=== PATIENT | female | born 1980 | race Caucasian/White ===

== ENCOUNTER 2018-11-23 14:27 | Emergency (ER) | payer OTHER ==
[2018-11-23 15:03] VITALS: BP 144/78
--- NOTE | 2018-11-23 15:15 | UC ---
Upper Extremity HPI - HPI Summary HPI Summary: Patient is a 38 year old female , who present today to the urgent care with left elbow pain since yesterday. She reports that she was in [place] and just flew in 2 hours ago. Yesterday she was on a bus tour and when she got out for a scenic view, she slipped on the gravel and likely landed on the left elbow/ outstretched hand. She noticed swelling at the elbow and has pain with limitation of range of motion. She took ibuprofen with some relief. 3 days ago she had another injury when she fell in the [place], tripped on the stairs and landed on her left chest with a noticeable bruise in the mid chest on the lateral aspect. She denies any a or shortness of breath or increased pain with deep inspiration. She also landed on her left knee and sustained an abrasion, no difficulty with walking - History of Current Complaint Chief Complaint: UCUpperExtremity Stated Complaint: ARM INJURY Time Seen by Provider: 11/23/18 15:05 Hx Obtained From: Patient Hx Last Menstrual Period: 11/01/18 Pain Intensity: 5 - Allergies/Home Medications Allergies/Adverse Reactions: Allergies Allergy/AdvReac Type Severity Reaction Status Date / Time No Known Allergies Allergy Verified 11/23/18 15:03 Home Medications: Home Medications Escitalopram Oxalate [Lexapro 10 mg] 10 mg PO DAILY 11/23/18 [History Confirmed 11/23/18] buPROPion TAB* [Wellbutrin TAB*] 100 mg PO DAILY 11/23/18 [History Confirmed ] PMH/Surg Hx/FS Hx/Imm Hx - Additional Past Medical History Additional PMH: Past Medical History : Anxiety Past Surgical History: Pilonidal cyst Family History : Skin cancer, hypertension Social History : Occasional alcohol, non smoker, no drug use. 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 Negative: Shortness Of Breath Cardiovascular: Positive: Negative Gastrointestinal: Positive: Negative Genitourinary: Positive: Negative Motor: Positive: Negative Neurovascular: Positive: Negative Musculoskeletal: Positive: Arthralgia - Left elbow, Decreased ROM - Left elbow Neurological: Positive: Negative Psychological: Positive: Negative Is Patient Immunocompromised?: No Physical Exam - Summary Physical Exam Summary: Physical Exam: Const: Appears well. No signs of apparent distress present. Alert and oriented x 3. Musculo: Walks with a normal gait. Head/Face: Atraumatic, normocephalic on inspection. Eyes: EOMI and PERRLA in both eyes. Conjunctivae clear. No discharge noted ENT: Hearing normal Chest: 4 cm x 4 cm sized bruise noted on the lateral aspect and mid chest , tender to palpate . Respiratory: Respirations are unlabored. Lungs clear to auscultation bilaterally, no wheezing , rhonchi or rales noted . CVS: Regular rate and Rhythm, S1S2 normal , no murmurs identified. Extremities: Peripheral circulation is grossly normal. Pulses 2+ Abdomen : Soft non tender , nondistended , Bowel sounds present . No guarding , rebound tenderness or rigidity noted. Skin: Abrasion of the left knee anteriorly, no signs of infection Neuro: Cranial nerves II to XII intact, motor and sensory intact. DTR Intact bilaterally. Mood is normal. Affect is normal. Left Elbow: Inspection /Palpation: no bruising. There is tenderness to palpation at the radial head . No tenderness to palpation at medial epicondyle lateral epicondyle or the olecranon process Range of motion is limited to short of full extension , able to flex .range of motion is painful .pronation and supination is painful. 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 Left forearm: No tenderness to palpation Left wrist: No tenderness to palpation. Full range of motion Left shoulder: Full pain-free range of motion Tinel's sign is negative on the right. Triage Information Reviewed: Yes Vital Signs: Initial Vital Signs Temp 98.4 F 11/23/18 14:55 Pulse 100 11/23/18 14:55 Resp 16 11/23/18 14:55 BP 144/78 11/23/18 14:55 Pulse Ox 97 11/23/18 14:55 Vital Signs Reviewed: Yes Diagnostics - Radiology No standard instances Radiology Interpretation Completed By: Radiologist - Left elbow x-ray: SOFT TISSUE SWELLING. NO ACUTE OSSEOUS INJURY. IF SYMPTOMS PERSIST, RECOMMEND REPEAT IMAGING. Upper Extremity Course/Dx - Course Course Of Treatment: During the visit today, we obtained Left elbow x-ray: SOFT TISSUE SWELLING. NO ACUTE OSSEOUS INJURY. IF SYMPTOMS PERSIST, RECOMMEND REPEAT IMAGING. I spoke to Dr. Giron as that there was a small cortical irregularity at the left radial head and that's where she is very painful and he agreed that if that's the site of pain that she might have nondisplaced radial head fracture. We discussed the findings and further plan. She was given a sling for comfort and support and will follow up with orthopedics Patient expressed understanding . - Differential Dx/Diagnosis Provider Diagnosis: Fracture of radial head, left, closed Discharge - Sign-Out/Discharge Documenting (check all that apply): Patient Departure All imaging exams completed and their final reports reviewed: No Studies - Discharge Plan Condition: Stable Disposition: HOME Patient Education Materials: Elbow Fracture (ED) Referrals: Fernie Paredes MD [Primary Care Provider] - Sancho Roberto MD [Medical Doctor] - 2 Days Additional Instructions: Please continue using the sling. Ibuprofen as needed for pain Ice the joint locally 15 minutes at a time, 3-4 times a day Follow up with orthopedics in 2 to 3 days . Patients blood pressure slightly high in Urgent care today , plan follow up with PCP for better control Return to Urgent care / ER if symptoms get worse. - Billing Disposition and Condition Condition: STABLE Disposition: Home
== END 2018-11-23 16:27 | disposition home or self-care (01) ==
LOC: UCEAST 14:27
DX: S52.122A Displaced fracture of head of left radius, initial encounter for closed fracture (principal); S80.212A Abrasion, left knee, initial encounter; W01.0XXA Fall on same level from slipping, tripping and stumbling without subsequent striking against object, initial encounter; Y92.89 Other specified places as the place of occurrence of the external cause; I10 Essential (primary) hypertension; F41.9 Anxiety disorder, unspecified
CPT/HCPCS: 99212; G0463

== ENCOUNTER 2019-08-18 17:58 | Emergency (ER) | payer OTHER ==
[2019-08-18] MEDS ORDERED: Lidocaine/Epineph/Tetraca SOL 4 ML BTL (LET solution) TOPICAL ONE (19:17)
[2019-08-18] MEDS ORDERED: Lidocaine 1% MPF ** 5 ML VIAL INJ ONE (19:18)
--- NOTE | 2019-08-18 20:15 | UC ---
Laceration HPI - HPI Summary HPI Summary: Cut her R hand washing dishes. denies excess bleeding, numbness. she is R handed. - History Of Current Complaint Chief Complaint: UCLaceration Stated Complaint: HAND LACERATION Time Seen by Provider: 08/18/19 19:01 Hx Obtained From: Patient Hx Last Menstrual Period: last week Laceration Location: Finger Mechanism Of Injury: Sharp Trauma Onset/Duration: Sudden Onset Pain Intensity: 2 Pain Scale Used: 0-10 Numeric Aggravating Factors: Movement Hands: 1 - . - Allergies/Home Medications Allergies/Adverse Reactions: Allergies Allergy/AdvReac Type Severity Reaction Status Date / Time No Known Allergies Allergy Verified 08/18/19 18:14 Home Medications: Home Medications Escitalopram Oxalate [Lexapro 10 mg] 10 mg PO DAILY 11/23/18 [History Confirmed 08/18/19] ALPRAZolam [Alprazolam] 1 - 3 tab PO TID PRN 08/18/19 [History Confirmed ] Cephalexin CAP* [Keflex CAP*] 500 mg PO BID 7 Days #14 cap 08/18/19 [Rx] Norgestrel-Ethinyl Estradiol [Cryselle-28 Tablet] 1 tab PO DAILY 08/18/19 [ History Confirmed 08/18/19] Spironolactone 1 tab PO DAILY 08/18/19 [History Confirmed 08/18/19] Trazodone HCl 1 - 3 tab PO QPM PRN 08/18/19 [History Confirmed 08/18/19] oxyCODONE/Acetam5/325MG PREPAK [Percocet 5/325 TAB*] 5 mg PO BEDTIME PRN 3 Days #3 tab MDD 1 tab 08/18/19 [Rx] PMH/Surg Hx/FS Hx/Imm Hx - Additional Past Medical History Additional PMH: ACNE Previously Healthy: Yes - Surgical History Surgical History: Yes Surgery Procedure, Year, and Place: pylinidal cyst removed, dental - Family History Known Family History: Positive: Non-Contributory - Social History Alcohol Use: Occasionally Substance Use Type: None Smoking Status (MU): Never Smoked Tobacco Review of Systems All Other Systems Reviewed And Are Negative: Yes Constitutional: Negative: Fever, Chills, Fatigue Skin: Positive: Other - ladceration at base of thumb Neurological/Mental Status: Negative: Weakness, Paresthesia, Numbness Physical Exam Triage Information Reviewed: Yes Appearance: Well-Appearing Vital Signs: Initial Vital Signs Temp 97.5 F 08/18/19 18:10 Pulse 90 08/18/19 18:10 Resp 18 08/18/19 18:10 BP 123/80 08/18/19 18:10 Pulse Ox 98 08/18/19 18:10 Vital Signs Reviewed: Yes Skin: Positive: Other - 6cm almost hexagonal avulsion/flap base of flap. minimal bleeding Laceration Repair - Laceration Repair 1 Description: Irregular Laceration Size After Repair: Length (cm) - 6 Modified For Repair: No Type Injection: Local Anesthesia Used: 1.0% Lido Cleansing Completed Via Routine Prep: Yes Irrigation With Pressure Irrigation Device: Yes Closure Material: Sutures - 7 Closure Method: Single Layer Suture Of: Skin - avulsion/flap Suture Type: Prolene - 4-0 Laceration Course/Dx - Course/Dx Course Of Treatment: R handed F came in today W R base of thumb avulsion/flap lac measuring approx 6cm. We were able to stabilize bleeding, control her pain and cleaned/prepped area in sterile fashion. using 4-0 prolene sutures x7. 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 she was c/o pain and small very short term opiate rx and may ;use ibu. - Differential Dx - Laceration/Wound Differental Diagnoses: Laceration - Diagnosis Provider Diagnosis: Laceration Discharge ED - Sign-Out/Discharge Documenting (check all that apply): Patient Departure All imaging exams completed and their final reports reviewed: No Studies - Discharge Plan Condition: Good Disposition: HOME Prescriptions: Cephalexin CAP* [Keflex CAP*] 500 mg PO BID 7 Days #14 cap oxyCODONE/Acetam5/325MG PREPAK [Percocet 5/325 TAB*] 5 mg PO BEDTIME PRN 3 Days #3 tab MDD 1 tab PRN Reason: Pain - Mild Patient Education Materials: Care For Your Stitches (ED) Forms: *Work Release Referrals: Fernie Paredes MD [Primary Care Provider] - Additional Instructions: Please return in 7-10 days for suture removal. - Billing Disposition and Condition Condition: GOOD Disposition: Home
[2019-08-18 21:19] VITALS: BP 120/68
== END 2019-08-18 20:40 | disposition home or self-care (01) ==
LOC: UCEAST 17:58
DX: S61.411A Laceration without foreign body of right hand, initial encounter (principal); R53.83 Other fatigue; R50.9 Fever, unspecified; W45.8XXA Other foreign body or object entering through skin, initial encounter; Y93.G1 Activity, food preparation and clean up; Y92.9 Unspecified place or not applicable
CPT/HCPCS: 12002; 99212; G0463

== ENCOUNTER 2019-08-27 16:58 | Emergency (ER) | payer OTHER ==
[2019-08-27 17:06] VITALS: BP 115/71
--- NOTE | 2019-08-27 17:21 | UC ---
Laceration HPI - HPI Summary HPI Summary: 39 yo female presents for suture removal. She had 7 sutures placed to her right thumb on 08/18. No fever, drainage, redness, or increased pain. Healing well. FROm. - History Of Current Complaint Chief Complaint: UCUpperExtremity Stated Complaint: R HAND STITCHES REMOVAL REQUEST Time Seen by Provider: 08/27/19 17:11 Hx Obtained From: Patient Hx Last Menstrual Period: 08/14/19 Laceration Location: Finger Pain Intensity: 0 - Allergies/Home Medications Allergies/Adverse Reactions: Allergies Allergy/AdvReac Type Severity Reaction Status Date / Time No Known Allergies Allergy Verified 08/27/19 17:06 Home Medications: Home Medications Escitalopram Oxalate [Lexapro 10 mg] 10 mg PO DAILY 11/23/18 [History Confirmed 08/27/19] ALPRAZolam [Alprazolam] 1 - 3 tab PO TID PRN 08/18/19 [History Confirmed ] Norgestrel-Ethinyl Estradiol [Cryselle-28 Tablet] 1 tab PO DAILY 08/18/19 [ History Confirmed 08/27/19] Spironolactone 1 tab PO DAILY 08/18/19 [History Confirmed 08/27/19] Trazodone HCl 1 - 3 tab PO QPM PRN 08/18/19 [History Confirmed 08/27/19] PMH/Surg Hx/FS Hx/Imm Hx Psychological History: Anxiety, Depression - Surgical History Surgical History: Yes Surgery Procedure, Year, and Place: pylinidal cyst removed, dental - Family History Known Family History: Positive: Non-Contributory - Social History Lives: With Family Alcohol Use: Occasionally Substance Use Type: None Smoking Status (MU): Never Smoked Tobacco Review of Systems All Other Systems Reviewed And Are Negative: No Constitutional: Positive: Negative Skin: Positive: Other - Laceration Respiratory: Positive: Negative Cardiovascular: Positive: Negative Musculoskeletal: Positive: Negative Neurological/Mental Status: Positive: Negative Psychological: Positive: Negative Physical Exam - Summary Physical Exam Summary: GENERAL: NAD. WDWN. No pain distress. SKIN: RIGHT THUMB: Proximal aspect with [address] to healing laceration. NTTP. No drainage or erythema. CHEST: No accessory muscle use. Breathing comfortably and in no distress. CV: Pulses intact. Cap refill <2seconds MSK: FROM at right thumb with intact strength NEURO: Alert. PSYCH: Age appropriate behavior. Triage Information Reviewed: Yes Vital Signs: Initial Vital Signs Temp 98.1 F 08/27/19 17:00 Pulse 78 08/27/19 17:00 Resp 16 08/27/19 17:00 BP 115/71 08/27/19 17:00 Pulse Ox 99 08/27/19 17:00 Vital Signs Reviewed: Yes Laceration Course/Dx - Course/Dx Course Of Treatment: Sutures removed without difficulty - Diagnosis Provider Diagnosis: Visit for suture removal Discharge ED - Sign-Out/Discharge Documenting (check all that apply): Patient Departure All imaging exams completed and their final reports reviewed: No Studies - Discharge Plan Condition: Stable Disposition: HOME Patient Education Materials: Stitches Removal (ED) Referrals: Fernie Paredes MD [Primary Care Provider] - Additional Instructions: Change the band-aid daily until well healed (likely 4-5 more days) - Billing Disposition and Condition Condition: STABLE Disposition: Home
== END 2019-08-27 17:28 | disposition home or self-care (01) ==
LOC: UCEAST 16:58
DX: S61.011D Laceration without foreign body of right thumb without damage to nail, subsequent encounter (principal); F41.8 Other specified anxiety disorders; X58.XXXD Exposure to other specified factors, subsequent encounter